=== PATIENT | male | born 1980 | race Caucasian/White ===

== ENCOUNTER 2018-09-03 20:24 | Emergency (ER) | payer MEDICAID ==
[~2018-09-03] VITALS: Ht 167.6 cm; Wt 106.6 kg
[2018-09-03 20:34] VITALS: BP_SYST 180
[2018-09-03] MEDS ORDERED: DEXAMETHASONE SOD PHOSPHATE 10 MG/ML VIAL IVP ONE (20:45)
[2018-09-03] MEDS ORDERED: NACL 0.9% 1,000 ML IV ONE (20:45)
[2018-09-03 21:31] LABS: BASOPHILS # (AUTO) 0.1 K/uL (0.0-0.2); BASOPHILS % (AUTO) 0.6 % (0.0-2.0); EOSINOPHILS # (AUTO) 0.2 K/uL (0.0-0.4); EOSINOPHILS % (AUTO) 2.2 % (0.0-4.0); HEMATOCRIT 48.1 % (36-54); HEMOGLOBIN 16.2 g/dL (14.0-18.0); LYMPHOCYTES # (AUTO) 2.4 K/uL (1.0-5.5); LYMPHOCYTES % (AUTO) 26.2 % (20.5-51.5); MEAN CORPUSCULAR HEMOGLOBIN 30 pg (27-31); MEAN CORPUSCULAR HGB CONC 34 % (32-36); MEAN CORPUSCULAR VOLUME 89 fL (79.0-98.0); MONOCYTES # (AUTO) 0.5 K/uL (0.0-1.0); MONOCYTES % (AUTO) 5.2 % (1.7-9.3); NEUTROPHILS % (AUTO) 65.8 % (40.0-70.0); PLATELET COUNT (AUTO) 321 K/uL (130-430); RED BLOOD CELL COUNT(AUTO) 5.39 MIL/uL (4.2-6.2); RED CELL DISTRIBUTION WIDTH 14.2 % (9.0-15.0); WHITE BLOOD COUNT (AUTO) 9.1 K/uL (4.8-10.8)
[2018-09-03 21:40] LABS: CREATININE 0.85 mg/dL (0.55-1.30); POTASSIUM 3.8 mmol/L (3.5-5.1)
[2018-09-03 21:45] LABS: ALBUMIN 3.9 g/dL (3.4-4.8); TOTAL BILIRUBIN 0.4 mg/dL (0.0-1.0)
[2018-09-03 22:40] VITALS: BP_SYST 142
== END 2018-09-03 22:42 | disposition home or self-care (01) ==
LOC: SED 20:24
DX: J32.9 Chronic sinusitis, unspecified (principal); G47.30 Sleep apnea, unspecified; Z91.048 Other nonmedicinal substance allergy status; Z90.49 Acquired absence of other specified parts of digestive tract
CPT/HCPCS: 36415; 71045; 80053; 83880; 84484; 85025; 93005; 96374; 99284; J1100; J7030

== ENCOUNTER 2019-05-16 19:12 | Emergency (ER) | payer BC, MEDICAID ==
[~2019-05-16] VITALS: Ht 165.1 cm; Wt 113.4 kg
[2019-05-16 19:20] VITALS: BP_SYST 148
--- NOTE | 2019-05-16 20:08 | NUR ---
Patient to ER bed 7 to gown for evaluation. Side rails up. Report given to MOISES TRIVEDI.
--- NOTE | 2019-05-16 20:13 | NUR ---
Pt c/o Right flank pain with intermittent radiation to Left flank x 4 days. Pt states that today while at his computer, he felt a "pop" or "squishing tomato," exacerbated with cough. Denies N/V/D, no dysuria. Urine specimen provided and sent to lab.
[2019-05-16] MEDS ORDERED: MORPHINE 4 MG/ML INJ. SYRINGE IVP ONE (20:16)
[2019-05-16] MEDS ORDERED: KETOROLAC TROMETHAMINE 30 MG VIAL IVP ONE (20:16)
[2019-05-16] MEDS ORDERED: NACL 0.9% 1,000 ML IV ONE (20:16)
--- NOTE | 2019-05-16 20:16 | NUR ---
Dr. Justice at bedside.
--- NOTE | 2019-05-16 20:18 | NUR ---
Pt states "I don't want any pain medicine. I just want to know what's wrong." Dr. Justice notified.
--- NOTE | 2019-05-16 20:45 | NUR ---
Pt to CT via stretcher in stable condition.
[2019-05-16 20:49] LABS: BASOPHILS # (AUTO) 0.1 K/uL (0.0-0.2); BASOPHILS % (AUTO) 0.5 % (0.0-2.0); EOSINOPHILS # (AUTO) 0.2 K/uL (0.0-0.4); EOSINOPHILS % (AUTO) 1.8 % (0.0-4.0); HEMATOCRIT 47.3 % (36-54); HEMOGLOBIN 15.9 g/dL (14.0-18.0); LYMPHOCYTES # (AUTO) 2.6 K/uL (1.0-5.5); MEAN CORPUSCULAR HEMOGLOBIN 30 pg (27-31); MEAN CORPUSCULAR HGB CONC 34 % (32-36); MEAN CORPUSCULAR VOLUME 90 fL (79.0-98.0); MONOCYTES # (AUTO) 0.5 K/uL (0.0-1.0); MONOCYTES % (AUTO) 5.4 % (1.7-9.3); NEUTROPHILS % (AUTO) 64.3 % (40.0-70.0); PLATELET COUNT (AUTO) 319 K/uL (130-430); RED BLOOD CELL COUNT(AUTO) 5.26 MIL/uL (4.2-6.2); RED CELL DISTRIBUTION WIDTH 14.3 % (9.0-15.0); WHITE BLOOD COUNT (AUTO) 9.4 K/uL (4.8-10.8)
--- NOTE | 2019-05-16 20:55 | NUR ---
Pt returns from CT. No needs verbalized.
[2019-05-16 21:07] LABS: BILIRUBIN,URINE NEGATIVE (NEGATIVE); COLOR,URINE YELLOW (YELLOW); GLUCOSE,URINE NEGATIVE (NEGATIVE); KETONES,URINE NEGATIVE (NEGATIVE); LEUKOCYTE ESTERASE ,URINE NEGATIVE (NEGATIVE); NITRITE, URINE NEGATIVE (NEGATIVE); PH,URINE 5.5 (5.0-8.0); PROTEIN URINE NEGATIVE (NEGATIVE); UROBILINOGEN,URINE 0.2 (0.2-1.0)
[2019-05-16 21:13] LABS: BLOOD, URINE TRACE (NEGATIVE)
[2019-05-16 21:15] LABS: CLARITY/URINE CLEAR (CLEAR)
[2019-05-16 21:33] LABS: CALCIUM 9.1 mg/dL (8.4-11.0); CREATININE 0.9 mg/dL (0.55-1.30); POTASSIUM 4.1 mmol/L (3.5-5.1)
[2019-05-16 21:38] LABS: ALBUMIN 4.2 g/dL (3.4-4.8); TOTAL BILIRUBIN 0.5 mg/dL (0.0-1.0)
[2019-05-16 21:48] LABS: BACTERIA,URINE RARE /HPF (None Seen); RBC,URINE 0-3 /HPF (0-3); WBC,URINE NONE SEEN /HPF (0-3)
--- NOTE | 2019-05-16 22:10 | NUR ---
Dr. Justice at bedside to discuss test results.
[2019-05-16 22:18] VITALS: BP_SYST 132
--- NOTE | 2019-05-16 22:18 | NUR ---
Patient given written and verbal discharge instructions and verbalizes understanding. ER MD discussed with patient the results and treatment provided. Patient in stable condition. ID arm band removed. IV catheter removed intact and dressing applied, no active bleeding. Rx of Milk of Magnesia given. Patient educated on pain management and to follow up with PMD. Pain Scale 1/10. Opportunity for questions provided and answered. Medication side effect fact sheet provided.
== END 2019-05-16 22:18 | disposition home or self-care (01) ==
LOC: SED 19:12
DX: K59.00 Constipation, unspecified (principal); G47.30 Sleep apnea, unspecified; J45.909 Unspecified asthma, uncomplicated; R03.0 Elevated blood-pressure reading, without diagnosis of hypertension; Z91.048 Other nonmedicinal substance allergy status
CPT/HCPCS: 36415; 74176; 80053; 81000; 85025; 99284; J7030